=== PATIENT | female | born 1945 | race Caucasian/White ===

== ENCOUNTER → 2017-06-24 | Outpatient (CLI) | payer MEDICARE, OTHER ==
[~2017-06-24] MED LIST: ASMANEX HFA13 G1 INH; ASPIRIN; CEFTIN; DARVOCET-N 1001 TAB PO; EFFEXOR XR; FLONASE 0.05% N16 G1; HCTZ; NAPROXEN PO; NEURONTIN100 MG PO; NORVASC PO; OYSTER CALCIUM500 MG; PREVACID; PRILOSEC PO; SINGULAIR; SINGULAIR PO; TOPROL XL; VICODIN 5/1 TAB 5/50 PO; VIT E; VITAMIN B122500 MCG; ZYRTEC
--- NOTE | ~2017-06-24 | MR17 ---
[facility] A Service of [facility] RADIOLOGY TEXT RESULTS PATIENT: DARIN CLANCY LOCATION: [facility] : 43 UNIT #: [id number] AGE: [address]: Jimmy Reyes II, MD SEX: F ORDER DR: [id number] [place] [id number] O MR#: [id number] Acc #: [id number] NAME: DARIN CLANCY : 1945 SEX: F STUDY DATE/TIME: 06/24/2017 12:57 UNIT: [facility] ROOM: STUDY DESCRIPTION: MR Brain WWo Contrast Attending Physician: Jimmy Reyes II., M.D. Referring Physician: Jimmy Reyes II., M.D. Ordering Physician: Jimmy Reyes II., M.D. Primary Care Physician: Deejay Jensen M.D. MRI CENTER REPORT This report is preliminary unless electronic signature is present. EXAM MRI of the brain with/without HISTORY 72-year-old female with complaints of dizzy spells, slight headaches and memory issues for several years but worse since March 2017, after the of a younger brother. No trauma or cancer history. History of hypertension. COMMENT MRI of the brain was performed prior to and following intravenous administration of 20 mL of MultiHance. There is no abnormally restricted diffusion. No recent ischemic insult is suspected. Bone marrow signal intensity is diffusely cellular in the calvarium and marrow endplate degenerative changes are seen at the C3-4 level in the visualized upper cervical spine. There is no Chiari I malformation. There is no MRI evidence for intracranial hemorrhage. No extraaxial fluid collection. Mild age-appropriate atrophy. The major arterial intracranial flow voids are maintained. See the separate MR angiogram dictation. The mastoid air cells are clear. The visualized paranasal sinuses are clear. The patient has had cataract surgery bilaterally. Mild prominence of perivascular spaces noted in general and [id number]-[id number] white matter signal abnormality involving subcortical, deep and periventricular white matter supratentorial brain. This is likely due to small vessel disease, particularly given hypertension history. It is otherwise nonspecific. There is no particular pattern of atrophy or extraaxial fluid collection or hydrocephalus. Following contrast administration, there is no pathologic intracranial enhancement. No intracranial mass lesion or mass effect. IMPRESSION 1. No evidence for a recent ischemic insult on the diffusion series. [facility] A Service of [facility] RADIOLOGY TEXT RESULTS PATIENT: DARIN CLANCY LOCATION: [facility] : 43 UNIT #: [id number] AGE: [address]: Jimmy Reyes II, MD SEX: F ORDER DR: 2. Xgpl-re-[id number] white matter disease likely due to small vessel disease. Dictated by... Saumya Brewer M.D. THIS IS AN ELECTRONICALLY VERIFIED REPORT Saumya Brewer M.D. at 06/25/2017 5:25 PM WILLIE/angel TD: 06/25/2017 14:31 JOB #: [id number] MRI CENTER REPORT Page 1 of 1
--- NOTE | ~2017-06-24 | MR122 ---
[facility] A Service of [facility] RADIOLOGY TEXT RESULTS PATIENT: DARIN CLANCY LOCATION: [facility] : 43 UNIT #: [id number] AGE: [address]: Jimmy Reyes II, MD SEX: F ORDER DR: [id number] [place] [id number] O MR#: [id number] Acc #: [id number] NAME: DARIN CLANCY : 1945 SEX: F STUDY DATE/TIME: 06/24/2017 12:48 UNIT: [facility] ROOM: STUDY DESCRIPTION: MR MRA Head Wo Contrast Attending Physician: Jimmy Reyes II., M.D. Referring Physician: Jimmy Reyes II., M.D. Ordering Physician: Jimmy Reyes II., M.D. Primary Care Physician: Deejay Jensen M.D. MRI CENTER REPORT This report is preliminary unless electronic signature is present. EXAM MR angiogram head without HISTORY Presyncope, 72-year-old female complains of dizzy spells, slight headache and some memory issues for several years, all symptoms worse since March 2017 after the of a younger brother. Patient has a history of hypertension. No known injury or cancer. COMMENT MR angiography performed [place] [facility] [place] vasculature. There is a separate MR angiogram of the neck and an MRI of the brain. 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 There is partial origin to both posterior cerebral arteries with moderate sized posterior communicators bilaterally. P1 vessels are present bilaterally, though mildly hypoplastic. There is fullness at the tip of the basilar measuring up to 4 mm from which the vessels arise consistent with a small saccular aneurysm/junctional complex and MR angiographic followup is recommended in 1 year to reassess stability. The distal left vertebral artery is hypoplastic. Distal right vertebral artery supplies the basilar. No hemodynamically significant stenosis is suspected involving the basilar. No high-grade central vascular stenosis is suspected. IMPRESSION 1. Vascular variations are detailed above. There is no intracranial vascular cutoff or focal central stenosis. 2. 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 I would recommend a 1 year followup MR angiogram to reassess. [facility] A Service of [facility] RADIOLOGY TEXT RESULTS PATIENT: DARIN CLANCY [id number] : 43 UNIT #: [id number] AGE: [address]: Jimmy Reyes II, MD SEX: F ORDER DR: Dictated by... Saumya Brewer M.D. THIS IS AN ELECTRONICALLY VERIFIED REPORT Saumya Brewer M.D. at 06/25/2017 5:25 PM WILLIE/kush TD: 06/25/2017 14:09 JOB #: [id number] MRI CENTER REPORT Page 1 of 1
--- NOTE | ~2017-06-24 | MR134 ---
[facility] A Service of [facility] RADIOLOGY TEXT RESULTS PATIENT: DARIN CLANCY LOCATION: [facility] : 43 UNIT #: [id number] AGE: [address]: Jimmy Reyes II, MD SEX: F ORDER DR: [id number] [place] [id number] O MR#: [id number] Acc #: [id number] NAME: DARIN CLANCY : 1945 SEX: F STUDY DATE/TIME: 06/24/2017 13:18 UNIT: [facility] ROOM: STUDY DESCRIPTION: MR MRA Neck Wo Contrast Attending Physician: Jimmy Reyes II., M.D. Referring Physician: Jimmy Reyes II., M.D. Ordering Physician: Jimmy Reyes II., M.D. Primary Care Physician: Deejay Jensen M.D. MRI CENTER REPORT This report is preliminary unless electronic signature is present. EXAM MRA neck without. HISTORY Presyncope. 72-year-old female patient with dizzy spells, slight headaches, memory issues for several years, worse since brother's in March 2017. TECHNIQUE MR angiography from neck vessels without contrast on a 1.5-T imaging system. FINDINGS By NASCET criteria, there is no hemodynamically significant stenosis suspected at either carotid bifurcation. Both vertebral arteries are patent, right being mildly dominant. IMPRESSION 1. No hemodynamically significant stenosis is suspected at either carotid bifurcation by NASCET criteria. 2. Both vertebral arteries are patent in their visualized portions, right being dominant. 3. Proximal vessels not well evaluated on a noncontrasted study, due to motion. Dictated by... Saumya Brewer M.D. THIS IS AN ELECTRONICALLY VERIFIED REPORT Saumya Brewer M.D. at 06/25/2017 5:25 PM [facility] A Service [facility] RADIOLOGY TEXT RESULTS PATIENT: DARIN CLANCY LOCATION: [facility] : 43 UNIT #: [id number] AGE: [address]: Jimmy Reyes II, MD SEX: F ORDER DR: Isacc TD: 06/25/2017 14:51 JOB #: [id number] MRI CENTER REPORT Page 1 of 1
[2017-06-24 13:55] LABS: POC - CREATININE 0.92 mg/dL (0.44-1.03); POC - GFR >60.0 mL/min (>60)
== END | disposition home or self-care (01) ==
LOC: SMRI 12:07
PROVIDERS: Psychiatry & Neurology Neurology
DX: R55 Syncope and collapse (principal); R90.82 White matter disease, unspecified
CPT/HCPCS: 70544; 70547; 70553; 82565; A9581